=== PATIENT | female | born 1945 | race American Indian/Alaskan Native ===

== ENCOUNTER 2016-06-21 10:45 | Outpatient (CLI) | payer MEDICARE ==
--- NOTE | 2016-06-22 08:40 | Mammography Report ---
BONE DENSITY STUDY: DEFINITIONS: BMD = Bone Mineral Density T-score = BMD related to mean peak bone mass of young adult (mean expressed in Standard Deviation) Z-score = Age matched BMD expressed in SD World Health Organization (WHO) Diagnostic Criteria Normal T-score > -1 SD Osteopenia T-score between -1 and -2.4 SD Osteoporosis T-score -2.5 SD or below FINDINGS: The weighted average BMD of lumbar spine L1-L4 is 0.964 with a T-score of -0.8. The weighted average BMD of hip is 0.926 with a T-score of -0.1. IMPRESSION: The patient's T-score is diagnostic for normal bone density and low relative risk for fracture. NOTE: BMD is not the only risk factor for fracture; also consider factors such as the patient's age, risk of falling, previous osteoporotic fracture, family history of osteoporotic fractures, current smoker, and low body weight. Mcgowan's triangle is a region of interest in femur, predominantly of trabecular bone. It is not a true anatomic site, and [facility] does not recommend its use clinically.
== END 2016-06-21 10:46 | disposition home or self-care (01) ==
LOC: MAMMO 10:45
PROVIDERS: ATTEND Internal Medicine
DX: Z13.820 Encounter for screening for osteoporosis (principal)
CPT/HCPCS: 77080

== ENCOUNTER 2018-09-22 14:08 | Emergency (ER) | payer MEDICARE ==
--- NOTE | 2018-09-22 14:52 | Event Note ---
ED Screening Note ED Screening Note: PMH DM HTN VERTIGO- NEVER PUT ON MEDS, WAS DX 12 YEARS AGO [facility] THYROID CO DIZZINESS HAD EPISODE TUES WELL RX GLOPIZIDE METFORMIN INSULIN METOP NORVASC LOSARTAN NO OR/CVA/TIA This initial assessment/diagnostic orders/clinical plan/treatment(s) is/are subject to change based on patients health status, clinical progression and re- assessment by fellow clinical providers in the ED. Further treatment and workup at subsequent clinical providers discretion. Patient/guardian urged not to elope from the ED as their condition may be serious if not clinically assessed and managed. Initial orders include: EKG LABS UA
[2018-09-22 16:05] LABS: Basophils % (Auto) 1.1 % (0.0-1.8); Eosinophils % (Auto) 0.7 % (0.0-4.3); Hematocrit 42.1 % (30.3-42.9); Hemoglobin 14.3 gm/dl (10.1-14.3); Lymphocytes # (Auto) 0.9 K/mm3 (1.2-5.4); Lymphocytes % (Auto) 20.7 % (13.4-35.0); Mean Corpuscular HGB Conc 34 % (30-34); Mean Corpuscular Volume 81 fl (79-97); Monocytes # (Auto) 0.3 K/mm3 (0.0-0.8); Monocytes % (Auto) 6.7 % (0.0-7.3); Platelet Count 293 K/mm3 (140-440); Red Blood Count 5.19 M/mm3 (3.65-5.03); Red Cell Distribution Width 14.8 % (13.2-15.2)
[2018-09-22 16:35] LABS: Alanine Aminotransferase 17 units/L (7-56); Albumin 4.5 g/dL (3.9-5); BUN/Creatinine Ratio 22; Blood Urea Nitrogen 11 mg/dL (7-17); Calcium 9.4 mg/dL (8.4-10.2); Hemolysis Index 6
--- NOTE | 2018-09-22 16:52 | XRay Report ---
PROCEDURE: XR CHEST ROUTINE 2V TECHNIQUE: Frontal and lateral chest radiographs. HISTORY: Lightheadedness/Dizziness COMPARISONS: None FINDINGS: The cardiomediastinal silhouette is normal. No consolidation. No pleural effusion. No pneumothorax. No acute osseous abnormality. IMPRESSION: No acute process in the chest. This document is electronically signed by Tammy Samano., September 22 2018 04:51:05 PM ET
[2018-09-22 18:46] LABS: Bilirubin,Urine NEG (Negative); Blood,Urine NEG (Negative); Color,Urine Straw (Yellow); Protein,Urine <15 mg/dL mg/dL (Negative); Urobilinogen,Urine < 2.0 mg/dL (<2.0); WBC,Urine < 1.0 /HPF (0.0-6.0)
--- NOTE | 2018-09-22 18:46 | Emergency Department Report ---
ED Dizziness HPI - General Chief Complaint: Dizziness Stated Complaint: VERTIGO Time Seen by Provider: 09/22/18 14:49 Source: patient Mode of arrival: Ambulatory Limitations: No Limitations - History of Present Illness Initial Comments: Chief complaint: Vertigo HPI: Mrs. Anderson is a 73-year-old female with history of vertigo, diabetes mellitus, hypertension who presents with vertigo symptoms today. Suddenly while sitting at the table, she developed sudden onset of room spinning sensation. The symptoms lasted 10-15 minutes. She's had recurrent vertigo symptoms for 5- 10 years. She has been evaluated by chemical research worker without d efinitive diagnosis. Recently she has had sinus headache and nasal congestion. Symptoms have spontaneously resolved. No associated speech gait or visual disturbances. MD Complaint: dizziness -: Sudden, This afternoon Timing: sudden onset Description: "room spinning" History of Same: Yes History of Trauma: No Severity: mild Improves With: remaining still, other (time) Associated Symptoms: denies other symptoms - Related Data Home Medications Medication Instructions Recorded Confirmed Last Taken Lisinopril 20 mg PO DAILY 07/02/14 07/02/14 Unknown Lovastatin 20 mg PO HS 07/02/14 07/02/14 Unknown Metoprolol 25 mg PO DAILY 07/02/14 07/02/14 Unknown glipiZIDE ER 10 mg PO BID 07/02/14 07/02/14 Unknown metFORMIN 1,000 mg PO BID 07/02/14 07/02/14 Unknown Previous Rx's Medication Instructions Recorded Last Taken Type Butalb/Acetamin/Caff 50-325-40 1 each PO Q4H PRN #30 tablet 07/02/14 Unknown Rx [Fioricet] Promethazine [Phenergan] 25 mg PO Q6H PRN #20 tablet 07/02/14 Unknown Rx Fluticasone [Flonase] 1 spray NS QDAY 30 Days #1 bottle 09/22/18 Unknown Rx Loratadine 10 mg PO DAILY 30 Days #30 tablet 09/22/18 Unknown Rx Allergies Allergy/AdvReac Type Severity Reaction Status Date / Time No Known Allergies Allergy Verified 09/22/18 14:52 ED Review of Systems ROS: Stated complaint: VERTIGO Other details as noted in HPI Comment: All other systems reviewed and negative Constitutional: denies: fever, malaise Respiratory: denies: cough Cardiovascular: denies: chest pain ED Past Medical Hx - Past Medical History Previous Medical History?: Yes Hx Hypertension: Yes Hx Diabetes: Yes Additional medical history: High cholesterol, thyroid problems, vertigo - Surgical History Past Surgical History?: Yes Hx Cholecystectomy: Yes Additional Surgical History: Hysterectomy, thyroidectomy - Social History Smoking Status: Never Smoker Substance Use Type: None - Medications Home Medications: Home Medications Medication Instructions Recorded Confirmed Last Taken Type Butalb/Acetamin/Caff 50-325-40 1 each PO Q4H PRN #30 tablet 07/02/14 Unknown Rx [Fioricet] Lisinopril 20 mg PO DAILY 07/02/14 07/02/14 Unknown History Lovastatin 20 mg PO HS 07/02/14 07/02/14 Unknown History Metoprolol 25 mg PO DAILY 07/02/14 07/02/14 Unknown History Promethazine [Phenergan] 25 mg PO Q6H PRN #20 tablet 07/02/14 Unknown Rx glipiZIDE ER 10 mg PO BID 07/02/14 07/02/14 Unknown History metFORMIN 1,000 mg PO BID 07/02/14 07/02/14 Unknown History Fluticasone [Flonase] 1 spray NS QDAY 30 Days #1 bottle 09/22/18 Unknown Rx Loratadine 10 mg PO DAILY 30 Days #30 tablet 09/22/18 Unknown Rx ED Physical Exam - General Limitations: No Limitations General appearance: alert, in no apparent distress - Head Head exam: Present: atraumatic, normocephalic - Eye Eye exam: Present: normal appearance. Absent: scleral icterus, conjunctival injection - ENT ENT exam: Present: mucous membranes moist - Neck Neck exam: Present: normal inspection, full ROM. Absent: tenderness, meningismus - Respiratory Respiratory exam: Present: normal lung sounds bilaterally. Absent: respiratory distress, wheezes, rales, rhonchi - Cardiovascular Cardiovascular Exam: Present: regular rate, normal rhythm, normal heart sounds. Absent: systolic murmur, diastolic murmur, rubs, gallop - GI/Abdominal GI/Abdominal exam: Present: soft, normal bowel sounds. Absent: distended, tenderness, guarding, rebound - Extremities Exam Extremities exam: Present: normal inspection - Back Exam Back exam: Present: normal inspection - Neurological Exam Neurological exam: Present: alert, oriented X3, CN II-XII intact, normal gait. Absent: motor sensory deficit - Psychiatric Psychiatric exam: Present: normal affect, normal mood - Skin Skin exam: Present: warm, dry, intact, normal color. Absent: rash ED Course Vital Signs 09/22/18 14:49 Temperature 98.2 F Pulse Rate 86 Respiratory 18 Rate Blood Pressure 158/72 [Right] O2 Sat by Pulse 99 Oximetry ED Medical Decision Making - Lab Data Result diagrams: 09/22/18 15:50 09/22/18 15:50 Laboratory Results - last 24 hr 09/22/18 09/22/18 09/22/18 15:50 15:50 15:50 WBC 4.4 L RBC 5.19 H Hgb 14.3 Hct 42.1 MCV 81 MCH 28 MCHC 34 RDW 14.8 Plt Count 293 Lymph % (Auto) 20.7 [place] % (Auto) 6.7 Eos % (Auto) 0.7 Baso % (Auto) 1.1 Lymph # 0.9 L [place] # 0.3 Eos # 0.0 Baso # 0.0 Seg Neutrophils % 70.8 H Seg Neutrophils # 3.1 Sodium 137 Potassium 3.8 Chloride 96.1 L Carbon Dioxide 27 Anion Gap 18 BUN 11 Creatinine 0.5 L Estimated GFR > 60 BUN/Creatinine Ratio 22 Glucose 200 H POC Glucose Calcium 9.4 Total Bilirubin 0.80 AST 19 ALT 17 Alkaline Phosphatase 83 Troponin T < 0.010 < 0.010 Total Protein 8.2 Albumin 4.5 Albumin/Globulin Ratio 1.2 TSH 09/22/18 09/22/18 15:50 16:39 WBC RBC Hgb Hct MCV MCH MCHC RDW Plt Count Lymph % (Auto) [place] % (Auto) Eos % (Auto) Baso % (Auto) Lymph # [place] # Eos # Baso # Seg Neutrophils % Seg Neutrophils # Sodium Potassium Chloride Carbon Dioxide Anion Gap BUN Creatinine Estimated GFR BUN/Creatinine Ratio Glucose POC Glucose 169 H Calcium Total Bilirubin AST ALT Alkaline Phosphatase Troponin T Total Protein Albumin Albumin/Globulin Ratio TSH 2.560 - EKG Data 09/22/18 18:43 EKG obtained 1652 Normal sinus rhythm rate 90 beats a minute normal axis normal intervals no ST elevation associated T-wave abnormality - Radiology Data Radiology results: report reviewed Chest x-ray no acute process according to radiology report - Medical Decision Making Ms. Anderson presents with recurrent vertigo for the past 5-10 years. Has had previous ENT evaluation. No associated symptoms to indicate central cause such as CVA or intracranial tumor. However I did feel that it was prudent considering her age and cardiovascular risk factors to have outpatient evaluation by neurologist. She will inform her new PCP Dr. Michael of her symptoms. I prescribed Flonase and loratadine for allergic rhinitis symptoms. Critical care attestation.: If time is entered above; I have spent that time in minutes in the direct care of this critically ill patient, excluding procedure time. ED Disposition Clinical Impression: Vertigo Disposition: [id number] TO HOME OR SELFCARE Is pt being admited?: No Does the pt Need Aspirin: No Condition: Stable Instructions: Vertigo (ED) Prescriptions: Fluticasone [Flonase] 1 spray NS QDAY 30 Days #1 bottle Loratadine 10 mg PO DAILY 30 Days #30 tablet Referrals: LILA MICHAEL MD [Primary Care Provider] - 3-5 Days SAMINA KAUR MD [Staff Physician] - 3-5 Days
[2018-09-22 18:58] VITALS: BP 173/83
== END 2018-09-22 19:04 | disposition home or self-care (01) ==
LOC: ED 14:08
DX: R42 Dizziness and giddiness (principal); I10 Essential (primary) hypertension; E11.9 Type 2 diabetes mellitus without complications; E78.5 Hyperlipidemia, unspecified; Z90.49 Acquired absence of other specified parts of digestive tract; Z90.710 Acquired absence of both cervix and uterus; Z79.899 Other long term (current) drug therapy
CPT/HCPCS: 36415; 71046; 80053; 81001; 82962; 84443; 84484; 85025; 93005; 93010